=== PATIENT | female | born 1990 | race Hispanic/Latino ===

== ENCOUNTER 2024-10-06 13:06 | Emergency (ER) | payer OTHER ==
[~2024-10-06] VITALS: Ht 152.4 cm; Wt 78.1 kg
[2024-10-06] MEDS: KETOROLAC TROMETHAMINE 30 MG/ML VIAL IV STA (14:07)
[2024-10-06] MEDS: FAMOTIDINE 20 MG/2 ML VIAL IV ONE (14:07)
[2024-10-06] MEDS: ONDANSETRON HCL INJ 2MG/ML 2ML 2 MG/ML VIAL IV ONE (14:07)
[2024-10-06] MEDS ORDERED: TYLENOL325 MG PO (15:07)
[2024-10-06] MEDS ORDERED: ONDANSETRON ODT4 MG PO (15:07)
[2024-10-06 15:11] VITALS: PULSE 58; RESP 18; TEMP 97.4; O2SAT 99
== END 2024-10-06 15:45 | disposition home or self-care (01) ==
LOC: FSED 13:11
DX: R06.02 Shortness of breath (principal); R51.9 Headache, unspecified; R07.89 Other chest pain; M79.602 Pain in left arm; R11.0 Nausea; F41.9 Anxiety disorder, unspecified; Z11.52 Encounter for screening for COVID-19
CPT/HCPCS: 0223U; 71046; 87400; 96374; 96375; 99284; J1885; J2405; 93005